=== PATIENT | male | born 1960 | race Caucasian/White ===

== ENCOUNTER 2018-09-01 11:21 | Outpatient (REF) | payer MEDICAID, SELFPAY ==
[2018-09-01 21:19] LABS: Abs Immature Grans 0.06 k/cumm (0.0-0.09); Absolute Basophil Count 0.07 k/cumm (0.0-0.2); Absolute Eosinophil Count 0.46 k/cumm (0.0-0.7); Absolute Lymphocyte Count 3.13 k/cumm (1.2-3.4); Basophils % 0.4; Eosinophils % 2.6; HCT 33.6 % (40.0-50.0); HGB 10.7 g/dL (13.5-17.5); Immature Grans % 0.3; Lymphocytes % 17.9; Mean Corp. HGB Concentration 31.8 g/dL (32.0-36.0); Mean Corpuscular Hemoglobin 30.5 pg (27.0-33.0); Mean Corpuscular Volume 95.7 fL (80-95); Mean Platelet Volume 11.8 fL (8.0-11.0); Monocytes % 5.7; Neutrophils % 73.1; Platelet Count 356 x1000/uL (130-400); RBC 3.51 m/cumm (4.50-6.00); RBC Distribution Width 15.2 % (11.8-14.1)
[2018-09-01 21:21] LABS: Absolute Neutrophil Count 12.79 k/cumm (1.2-6.7)
[2018-09-01 21:40] LABS: ALT 18 U/L (12-78); AST 29 U/L (15-37); Albumin 2.9 g/dL (3.4-5.0); Alkaline Phosphatase 129 U/L (46-116); Anion Gap 10.7 mmol/L (3-11); BUN 6 mg/dL (7-18); Bilirubin, Total 0.3 mg/dL (0.2-1.0); CO2 27.3 mmol/L (21.0-32.0); Calcium 8.8 mg/dL (8.5-10.1); Chloride 101 mmol/L (98-107); Folate 10.9 ng/mL (8.6-20.0); Glucose 97 mg/dL (70-100); Potassium 3.8 mmol/L (3.5-5.1); Sodium 139 mmol/L (136-145); Total Protein 7.9 g/dL (6.4-8.2)
== END 2018-09-01 11:41 ==
LOC: NCHCN 11:21
PROVIDERS: PCP Family Medicine; Visit Provider Nurse Practitioner
DX: I10 Essential (primary) hypertension (principal); B19.20 Unspecified viral hepatitis C without hepatic coma; F10.10 Alcohol abuse, uncomplicated
CPT/HCPCS: 80053; 82746; 85025

== ENCOUNTER 2018-09-05 09:11 | Outpatient (REF) | payer MEDICAID, SELFPAY ==
[2018-09-05 12:45] LABS: Abs Immature Grans 0.04 k/cumm (0.0-0.09); Absolute Lymphocyte Count 3.61 k/cumm (1.2-3.4); Absolute Neutrophil Count 9.14 k/cumm (1.2-6.7); Basophils % 0.5; Eosinophils % 4.8; HCT 35.3 % (40.0-50.0); HGB 11.1 g/dL (13.5-17.5); Immature Grans % 0.3; Lymphocytes % 24.7; Mean Corp. HGB Concentration 31.4 g/dL (32.0-36.0); Mean Corpuscular Hemoglobin 29.8 pg (27.0-33.0); Mean Corpuscular Volume 94.6 fL (80-95); Mean Platelet Volume 11.1 fL (8.0-11.0); Monocytes % 7.1; Neutrophils % 62.6; Platelet Count 379 x1000/uL (130-400); RBC 3.73 m/cumm (4.50-6.00); RBC Distribution Width 15.2 % (11.8-14.1)
[2018-09-05 12:48] LABS: Absolute Basophil Count 0.07 k/cumm (0.0-0.2); Absolute Monocyte Count 1.04 k/cumm (0.11-0.7)
== END 2018-09-05 09:31 ==
LOC: NCHCN 09:11
PROVIDERS: PCP Family Medicine; Visit Provider Nurse Practitioner
DX: D64.9 Anemia, unspecified (principal)
CPT/HCPCS: 85025

== ENCOUNTER 2018-10-09 09:43 | Outpatient (REF) | payer MEDICAID, SELFPAY ==
[2018-10-09 12:22] LABS: Abs Immature Grans 0.03 k/cumm (0.0-0.09); Absolute Basophil Count 0.07 k/cumm (0.0-0.2); Absolute Eosinophil Count 0.56 k/cumm (0.0-0.7); Absolute Lymphocyte Count 3.18 k/cumm (1.2-3.4); Absolute Monocyte Count 0.77 k/cumm (0.11-0.7); Absolute Neutrophil Count 6.19 k/cumm (1.2-6.7); Basophils % 0.6; Eosinophils % 5.2; HCT 37.3 % (40.0-50.0); HGB 11.8 g/dL (13.5-17.5); Immature Grans % 0.3; Lymphocytes % 29.4; Mean Corp. HGB Concentration 31.6 g/dL (32.0-36.0); Mean Corpuscular Hemoglobin 29.2 pg (27.0-33.0); Mean Corpuscular Volume 92.3 fL (80-95); Monocytes % 7.1; Neutrophils % 57.4; Platelet Count 293 x1000/uL (130-400); RBC 4.04 m/cumm (4.50-6.00); RBC Distribution Width 14.2 % (11.8-14.1)
[2018-10-09 13:06] LABS: Folate 14.4 ng/mL (8.6-20.0); Vitamin B12 413 pg/mL (193-986)
== END 2018-10-09 10:03 ==
LOC: NCHCN 09:43
PROVIDERS: PCP Family Medicine; Visit Provider Nurse Practitioner
DX: D64.9 Anemia, unspecified (principal)
CPT/HCPCS: 82607; 82746; 85025

== ENCOUNTER 2018-10-31 15:28 | Outpatient (REF) | payer MEDICAID, SELFPAY ==
[2018-11-03 09:55] LABS: HIV-1/2 Ag & Ab Screen Negative (NEGAT)
[2018-11-04 19:43] LABS: HCV Genotype 1b (Undetected)
[2018-11-05 09:06] LABS: ALT 41 U/L (7-55); ActiTest Grade A0-A1; ActiTest Interpretation no activity; ActiTest Score 0.29; Alpha-2-Macroglobulin 334 mg/dL (100 - 280); Apoliprotein A1 118 mg/dL (>=120); Bilirubin, Total 0.2 mg/dL (<=1.2); FibroTest Interpretation moderate fibrosis; FibroTest Score 0.51; FibroTest Stage F2; GGT 146 U/L (8 - 61); Haptoglobin 204 mg/dL (30 - 200)
== END 2018-10-31 15:48 ==
LOC: NCHCN 15:28
PROVIDERS: PCP Family Medicine; Visit Provider Family Medicine
DX: B19.20 Unspecified viral hepatitis C without hepatic coma (principal); Z11.4 Encounter for screening for human immunodeficiency virus [HIV]
CPT/HCPCS: 82172; 82247; 82977; 83010; 83883; 84460; 87389; 87521

== ENCOUNTER 2019-04-03 09:50 | Outpatient (REF) | payer MEDICAID, SELFPAY ==
[2019-04-03 18:51] LABS: HCT 40.3 % (40.0-50.0); HGB 13.1 g/dL (13.5-17.5); Mean Corp. HGB Concentration 32.5 g/dL (32.0-36.0); Mean Corpuscular Hemoglobin 29.6 pg (27.0-33.0); Mean Corpuscular Volume 91.2 fL (80-95); Mean Platelet Volume 10.8 fL (8.0-11.0); Platelet Count 168 x1000/uL (130-400); RBC 4.42 m/cumm (4.50-6.00); RBC Distribution Width 14.1 % (11.8-14.1); White Blood Cell Count 10.97 k/cumm (4.4-10.8)
[2019-04-06 14:39] LABS: HCV RNA Detection Quantitative Undetected IU/mL (UNDECT)
== END 2019-04-03 10:10 ==
LOC: NCHCN 09:50
PROVIDERS: PCP Family Medicine; Visit Provider Family Medicine
DX: B19.20 Unspecified viral hepatitis C without hepatic coma (principal)
CPT/HCPCS: 85027; 87522